=== PATIENT | female | born 1955 | race Caucasian/White ===

== ENCOUNTER 2016-07-21 08:51 | Emergency (ER) | payer BC ==
[~2016-07-21] VITALS: Ht 165.1 cm; Wt 65.8 kg
[2016-07-21] MEDS ORDERED: ACTIVELLA 0.5-1 EACH ORAL (09:04)
--- NOTE | 2016-07-21 09:13 | Emergency Room Report ---
History of Present Illness General Chief Complaint: Laceration Source: Patient Present Illness HPI Patient presents with complaints of injury to the left index finger Patient was gardening and essentially with scissors essentially cut the tip of her finger This happened 1520 minutes prior to arrival Pain is 7/10 otherwise denies any injury to the wrist denies any loss of consciousness patient is unknown regarding her last tetanus shot Allergies: Coded Allergies: No Known Allergies (Unverified , 07/21/16) Patient History Past Medical History: see triage record Pertinent Family History: none Reviewed Nursing Documentation: PMH: Agreed, PSxH: Agreed Nursing Documentation-PMH Past Medical History: No Stated History Hx Hypertension: Yes Review of Systems All Other Systems: negative except mentioned in HPI Physical Exam Vital Signs Date Time Temp Pulse Resp B/P Pulse Ox O2 Delivery O2 Flow Rate FiO2 07/21/16 08:58 98.1 98 16 136/88 99 Room Air Sp02 EP Interpretation: reviewed, normal General Appearance: well appearing, no apparent distress Head: normocephalic, atraumatic Eyes: bilateral eye EOMI, bilateral eye PERRL ENT: normal pharynx Cardiovascular #1: normal inspection, normal peripheral pulses Musculoskeletal: other - Complete amputation of the distal tip of the left index finger, active oozing of blood, hemodynamically intact Neurologic: alert, oriented x3, responsive Skin: other - As above Procedures Laceration/Wound Repair Progress Patient had a regional block performed by dispensing 3 mL 1% lidocaine proximaly at the base of the left index finger This provided good regional sedation After this the area was irrigated and cleansed with peroxide and saline There appears to be a clear distal amputation There are no areas for suturing No obvious bony pathology was appreciated Therefore a surgeon seal application was applied to the distal finger Pressure dressing with bulky finger dressing was applied And the patient tolerated the procedure well Medical Decision Making Diagnostic Impression: Primary Impression: Amputation of finger tip ER Course Extremity does not reveal any obvious bony involvement patient had Area dressed as noted above Patient was provided with tetanus shot Was provided with hand specialty outpatient followup is stable for initial conservative trial Other X-Ray Diagnostic Results Other X-Ray Diagnostic Results : EP Interpretation: Yes Findings: no fractures, no dislocation, other - Obvious soft tissue disruption distally at the index finger Number of Views: 3 - left hand Last Vital Signs Date Time Temp Pulse Resp B/P Pulse Ox O2 Delivery O2 Flow Rate FiO2 07/21/16 08:58 98.1 98 16 136/88 99 Room Air Status: improved Disposition: HOME, SELF-CARE Condition: Improved Scripts Acetaminophen With Codeine (T#3) (TYLENOL #3 TAB*) Y Tab 1 TAB ORAL Q8H Y for For Pain, #10 TAB Prov: REYNALDO BUNN D.O. 07/21/16 Ibuprofen* (MOTRIN*) 600 Mg Tablet 600 MG ORAL Q8H Y for For Pain, #20 TAB 0 Refills Prov: REYNALDO BUNN D.O. 07/21/16 Additional Instructions: Followup hand specialty as noted above, return with any changes REYNALDO BUNN D.O. Jul 21, 2016 09:13
[2016-07-21] MEDS ORDERED: Lidocaine 1% Plain 30 ml INJ ONE (09:15)
[2016-07-21] MEDS ORDERED: TdaP Vaccine 0.5ml Syr IM ONE (09:15)
[2016-07-21] MEDS ORDERED: Surgicel 4in x 8in TOPIC ONE ×2 (09:22→10:30)
[2016-07-21] MEDS ORDERED: Hydrogen Peroxide 120ml Bottle TOPIC ONE ×2 (09:25→10:30)
[2016-07-21] MEDS ORDERED: ACETAMINOPHEN-1 EAC1 ORAL (09:36)
[2016-07-21] MEDS ORDERED: IBUPROFEN600 MG ORAL (09:36)
[2016-07-21 09:54] VITALS: BP 136/88
[2016-07-21 09:55] VITALS: BP 136/88
--- NOTE | 2016-07-21 10:12 | Diagnostic Imaging Report ---
Indication: pain Findings: 3 views of the left hand were obtained. There is truncation defect at the tip of the second digit. This appears to be a soft tissue injury. There is no fracture or radiopaque foreign body identified. Impression: Soft tissue injury involving the tip of the second digit
== END 2016-07-21 09:55 | disposition home or self-care (01) ==
LOC: EMR 09:05
DX: S61.201A Unspecified open wound of left index finger without damage to nail, initial encounter (principal); W27.2XXA Contact with scissors, initial encounter; Y93.H2 Activity, gardening and landscaping; Y92.9 Unspecified place or not applicable; Z23 Encounter for immunization
CPT/HCPCS: 12001; 73120; 90471; 90715; 99284; J2001